=== PATIENT | male | born 2000 | race Caucasian/White ===

== ENCOUNTER 2021-02-25 18:34 | Emergency (ER) | payer OTHER, SELFPAY ==
[2021-02-25 19:07] VITALS: BP 152/72; PULSE 70; RESP 14; TEMP 36.7; O2SAT 98; BMI 19.5
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
[2021-02-25 21:53] LABS: Bacteria Urine None Seen; RBC Urine None Seen (0-5/HPF); WBC Urine None Seen (0-5/HPF)
[2021-02-25 21:59] LABS: UR Morphine/Opiate cutoff 300 Negative (Negative); Ur Creatinine 20 (Normal); Urine Amphetamines Negative (Negative); Urine Barbiturates Negative (Negative); Urine Benzodiazepines Negative (Negative); Urine Cocaine Negative (Negative); Urine MDMA Negative (Negative); Urine Methadone Negative (Negative); Urine Methamphetamines Negative (Negative); Urine Oxycodone Negative (Negative); Urine Phencyclidine Negative (Negative); Urine Tetrahydrocannabinol Positive (Negative); Urine Tricyclic Antidepressant Negative (Negative); Urine pH 7 (Normal)
[2021-02-25 22:06] LABS: Alanine Aminotransferase 17 IU/L (<50); Albumin 4.9 g/dL (3.5-5.0); Albumin Globulin Ratio 1.5 (1.0-2.8); Alkaline Phosphatase 80 U/L (38-126); Aspartate Aminotransferase 29 IU/L (17-59); BUN Creatinine Ratio 16.5 (6-22); Bilirubin Total 0.6 mg/dL (0.2-1.3); Blood Urea Nitrogen 13 mg/dL (9-20); Carbon Dioxide 29 mmol/L (22-32); Chloride 102 mmol/L (98-107); Estimated Glomerular Filt Rate > 60.0 mL/min (>60); Ethanol (ETOH) < 10 mg/dL; Globulin 3.2 g/dL (1.7-4.1); Glucose 102 mg/dL (70-100); HEMOLYSIS < 15 (0-50); Potassium 3.9 mmol/L (3.4-5.1); Sodium 139 mmol/L (137-145); Total Protein 8.1 g/dL (6.3-8.2)
[2021-02-25 22:07] LABS: Add Manual Diff / Slide Review NO; Basophils Absolute Auto 0 /uL (0-100); Basophils Percent Auto 0.4 % (0-2); Eosinophils Absolute Auto 100 /uL (0-450); Hematocrit 40.6 % (41-53); Hemoglobin 13.6 g/dL (13.5-17.5); Lymphocytes Absolute Auto 2000 /uL (1100-4500); Lymphocytes Percent Auto 31.9 % (25-40); Mean Corpuscular HGB Conc 33.6 % (30-36); Mean Corpuscular Volume 86.3 fL (80-100); Monocytes Absolute Auto 500 /uL (0-900); Monocytes Percent Auto 8.6 % (3-14); Neutrophils Absolute Auto 3500 /uL (1500-7000); Neutrophils Percent Auto 57.1 % (50-75); Platelet Count 206 X10^3/uL (150-400); Red Blood Cell Count 4.71 X10^6/uL (4.5-5.9); White Blood Cell Count 6.2 X10^3/uL (4.5-11.0)
[2021-02-25 22:13] LABS: Culture Indicated Urine Cult Not Indicated
[2021-02-25 22:38] LABS: COVID19 -Nasal RAPID POSITIVE (Negative)
[2021-02-25 23:15] VITALS: BP 144/82; PULSE 67; RESP 18; O2SAT 99
== END 2021-02-25 23:16 | disposition home or self-care (01) ==
PROVIDERS: Emergency Provider Emergency Medicine
DX: F32.9 Major depressive disorder, single episode, unspecified (principal); U07.1 COVID-19
CPT/HCPCS: 36415; 80053; 80305; 80320; 81015; 85025; 87635; 99283; C9803

== ENCOUNTER 2022-03-26 22:36 | Emergency (ER) | payer OTHER, MEDICAID, SELFPAY ==
[2022-03-26 22:37] VITALS: BP 152/90; PULSE 77; RESP 16; TEMP 36.5; O2SAT 99
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
--- NOTE | 2022-03-26 23:41 | DI.CT.S_ITS ---
PROCEDURE: CT ANGIO HEAD AND NECK INDICATIONS: headache, trauma, proptosis, miosis TECHNIQUE: After the administration of intravenous contrast, 1 mm thick sections acquired from the aortic arch through the [place] of Tsai. Post-contrast 4.5 mm thick sections then re-acquired from the foramen magnum to the vertex. 3-dimensional aacyfvh-aqxqslfgi-dkagwwqiph (MIP) and/or volume rendering reformats were acquired of the central intracranial vasculature and neck separately. For radiation dose reduction, the following was used: automated exposure control, adjustment of mA and/or kV according to patient size. COMPARISON: None. FINDINGS: Image quality: Diagnostic a the g Radiology is the thicker available free air are at the of or. BRAIN: CSF spaces: Basal cisterns are patent. No extra-axial fluid collections. Ventricles are normal in size and shape. Brain: No intracranial hematoma collections, mass, or mass effect. Serna-white matter interface appears preserved. No abnormal intracranial enhancement. Skull and face: Calvarium and facial bones appear intact, without suspicious lesions. Orbits appear normal. Sinuses: Sinuses and mastoids are clear. HEAD CT ANGIOGRAPHY: Anterior circulation: Intracranial internal carotid arteries are normal in size and appear patent bilaterally. There is mild atherosclerotic calcification along the cavernous segments of the internal carotid arteries. The paired anterior cerebral arteries appear patent bilaterally. The anterior communicating artery also appears patent. The middle cerebral arteries appear patent bilaterally. No high-grade stenosis, occlusion, or filling defects. No cerebral aneurysms identified. Posterior circulation: Visualized portions of the vertebral arteries demonstrate normal caliber, and join to form a patent basilar artery. The posterior cerebral arteries appears patent bilaterally. No high-grade stenosis, occlusion, or filling defects. No cerebral aneurysms identified. NECK CT ANGIOGRAPHY: Carotid system: The great vessels demonstrate a conventional anatomy as they arise from the aortic arch. The origins of the common carotid arteries appear patent. The common carotid arteries demonstrate normal caliber and courses. The bifurcation regions are both widely patent. There is severe segmental narrowing of the internal carotid artery beginning at the level of C2 and extending to the petrous segment of the ICA. There is associated narrowing of greater than 70% with evaluation of the petrous segment limited due to the adjacent bones. The findings likely represent a carotid dissection with thrombosis of the false lumen. The left internal carotid artery appears patent. Posterior circulation: The origins of the vertebral arteries both appear patent. The more superior extracranial portions of both vertebral arteries also demonstrate normal courses and calibers. They join to form a patent basilar artery. Soft tissues: Visualized neck soft tissues demonstrate no suspicious abnormalities. Bones: No suspicious bony lesions. Visualized cervical spine appears intact. IMPRESSION: 1. 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 Findings discussed with Dr. Negro on 03/27/2022 at 1:35 a.m.. Any quantitative measurements of stenosis were performed using NASCET criteria. Dictated by: Mani Garcia M.D. on 03/27/2022 at 1:32 Approved by: Mani Garcia M.D. on 03/27/2022 at 1:44
[2022-03-27 00:09] LABS: Alanine Aminotransferase 21 IU/L (<50); Albumin 4.6 g/dL (3.5-5.0); Albumin Globulin Ratio 1.5 (1.0-2.8); Alkaline Phosphatase 84 U/L (38-126); Aspartate Aminotransferase 29 IU/L (17-59); BUN Creatinine Ratio 20.7 (6-22); Bilirubin Total 0.3 mg/dL (0.2-1.3); Blood Urea Nitrogen 17 mg/dL (9-20); Calcium 9.2 mg/dL (8.4-10.2); Carbon Dioxide 25 mmol/L (22-32); Chloride 104 mmol/L (98-107); Estimated Glomerular Filt Rate > 60 mL/min (>60); Glucose 105 mg/dL (70-100); HEMOLYSIS 16 (0-50); Magnesium 2.1 mg/dL (1.6-2.3); Potassium 4.1 mmol/L (3.4-5.1); Sodium 139 mmol/L (137-145); Total Protein 7.6 g/dL (6.3-8.2)
[2022-03-27 00:17] LABS: Add Manual Diff / Slide Review NO; Basophils Absolute Auto 0 /uL (0-100); Basophils Percent Auto 0.3 % (0-2); Eosinophils Absolute Auto 300 /uL (0-450); Eosinophils Percent Auto 3.2 % (2-4); Hematocrit 42.8 % (41-53); Hemoglobin 14.9 g/dL (13.5-17.5); Lymphocytes Absolute Auto 2200 /uL (1100-4500); Lymphocytes Percent Auto 27.3 % (25-40); Mean Corpuscular HGB Conc 34.9 % (30-36); Mean Corpuscular Hemoglobin 30.9 PG (26-34); Mean Corpuscular Volume 88.3 fL (80-100); Monocytes Absolute Auto 600 /uL (0-900); Monocytes Percent Auto 8.2 % (3-14); Neutrophils Absolute Auto 4800 /uL (1500-7000); Platelet Count 164 X10^3/uL (150-400); Red Blood Cell Count 4.84 X10^6/uL (4.5-5.9); Red Cell Distribution Width 12.8 % (11.6-14.8); White Blood Cell Count 7.9 X10^3/uL (4.5-11.0)
[2022-03-27] MEDS: PROPARACAINE 0.5% OPHTH SOL 1 DROPS EYE-RIGHT (00:19)
[2022-03-27 00:48] LABS: COVID19 -Nasal RAPID Negative (Negative)
[2022-03-27 01:46] VITALS: BP 151/87; PULSE 70; RESP 18; O2SAT 99
[2022-03-27] MEDS: ASPIRIN 81 MG CHEW TAB 324 MG PO (02:16)
[2022-03-27 03:06] VITALS: BP 139/78; PULSE 76; RESP 18; O2SAT 99
== END 2022-03-27 03:07 | disposition home or self-care (01) ==
PROVIDERS: Emergency Provider Emergency Medicine
DX: I77.71 Dissection of carotid artery (principal); Z20.822 Contact with and (suspected) exposure to COVID-19; Z86.16 Personal history of COVID-19
CPT/HCPCS: 36415; 70496; 70498; 80053; 83735; 85025; 87635; 99284; C9803; Q9967

== ENCOUNTER 2022-03-28 12:33 | Emergency (ER) | payer OTHER, MEDICAID, SELFPAY ==
[2022-03-28] VITALS (9 sets, daily range): BP systolic 109–128; BP diastolic 53–66; PULSE 38–55; RESP 15–22; TEMP 35.9; O2SAT 97–100; BMI 21.6
--- NOTE | 2022-03-28 13:15 | ED.NEUROSD ---
HPI - Neuro Symptoms/Deficit General Chief Complaint: Neuro Symptoms/Deficit Stated Complaint: Carotid Artery, Getting Worse Time Seen by Provider: 03/28/22 12:41 Source: patient Mode of arrival: Ambulatory History of Present Illness HPI Narrative: Patient is a 22-year-old male who has a recent history of right vertebral artery dissection after maurice diving. He was seen and evaluated here on 03/27/2022. He says he went maurice jumping 5 days ago now felt like he got whiplash he noticed some right eye drooping and came to the ER couple days ago. At that time he has also had right-sided frontal headache. He was diagnosed with vertebral artery dissection by CT angio. [facility] stroke physicians were notified he was instructed to start taking lisinopril and aspirin daily. Also Neurology in the telling him was consult did and also agreed with antihypertensives and aspirin to avoid high-risk activities. Today day he returns because he had blurry vision in his right eye which was worst then normal and lasted for about 1 hour it has now completely resolved. He denies any blackness or loss of vision. Related Data Previous Rx's Medication Instructions Recorded escitalopram oxalate 10 mg tablet 10 mg PO DAILY #30 tabs 02/19/22 lisinopril 10 mg tablet 10 mg PO DAILY #30 tabs 03/27/22 clopidogrel 75 mg tablet (Plavix) 75 mg PO DAILY #90 tabs 03/28/22 Allergies Allergy/AdvReac Type Severity Reaction Status Date / Time No Known Drug Allergies Allergy Verified 03/28/22 12:39 Review of Systems Review of Systems Narrative: GENERAL: Denies chills, fatigue, malaise, fever, sweats, travel HEENT: See HPI RESPIRATORY: Denies dyspnea, cough, wheezing, hemoptysis, sputum. CARDIOVASCULAR: Denies chest pain, palpitations, orthopnea, edema GASTROINTESTINAL: Denies nausea, vomiting, abdominal pain, diarrhea, constipation, melena. : Denies dysuria, frequency, incontinence, hematuria, urinary retention, flank pain. MUSCULOSKELETAL: Denies weakness, joint pain, or bony pain SKIN: No rash, no erythema, no pruritus NEUROLOGIC: Denies weakness, dizziness, headache, numbness, change in speech, confusion PSYCHIATRIC: No concerning psychosocial issues. 12 point review of systems is negative except for those stated above and HPI Patient History Medical History Hypertension Social History Smoking Status: Current some day smoker Smoking Status: Current some day smoker alcohol intake frequency: a few times a week Substance Use Type: does not use Exam Initial Vital Signs Initial Vital Signs: Vital Signs Temperature 96.7 F L 03/28/22 12:37 Pulse Rate 49 L 03/28/22 12:37 Respiratory Rate 15 03/28/22 12:37 Blood Pressure 125/60 03/28/22 12:37 Pulse Oximetry 100 03/28/22 12:37 Oxygen Delivery Method 03/28/22 12:37 GENERAL: Well-appearing, well-nourished and in no acute distress. HEENT: Head atraumatic,EOMI, very mild right eye sure review left eye is dilated at about a 3 mm right eye is more pain point about 2 mm EARS: Tympanic membranes visualized, no erythema or bulging, no hemotympanum CARDIOVASCULAR: Regular rate and rhythm without murmurs, rubs or gallops. RESPIRATORY: Breath sounds equal bilaterally, no wheezes rales or rhonchi. ABDOMEN: Soft, nontender. Normoactive bowel sounds all 4 quadrants. No guarding or rebound. EXTREMITIES: Normal range of motion, no clubbing or edema. Neurovascularly intact NEUROLOGICAL: Alert and oriented x4.Normal gait and speech. Cranial nerves II through XII grossly intact. Good lmqixo-ar-rved, good tdnc-gt-salu, strength equal bilaterally, no dysarthria or aphasia, sensation in tact to soft touch bilaterally, no visual changes, no facial droop SKIN: Warm, dry, no laceration, no petechiae, no rashes or lesions. Course Orders Ordered: ED Orders 03/28/22 13:28 CT angio head and neck Stat 03/28/22 13:30 CBC Auto Diff [Complete Blood Count AUTO DIFF] Stat CMP [Comprehensive Metabolic Panel] Stat Discontinued Medications Clopidogrel Bisulfate (Clopidogrel 75 Mg Tablet) 300 mg PO NOW ONE Stop: 03/28/22 16:13 Last Admin: 03/28/22 16:18 Dose: 300 mg Documented By: CASSIE Vital Signs Vital signs: Vital Signs - 8 hr 03/28/22 12:37 03/28/22 12:45 03/28/22 12:46 Temperature 96.7 F L Pulse Rate 49 L 54 L Respiratory Rate 15 Blood Pressure 125/60 Pulse Oximetry 100 99 100 Oxygen Delivery Method Room Air 03/28/22 12:46 03/28/22 13:00 03/28/22 13:00 Temperature Pulse Rate 49 L Respiratory Rate 15 Blood Pressure 128/60 124/59 L Pulse Oximetry 99 Oxygen Delivery Method 03/28/22 13:30 03/28/22 13:30 03/28/22 15:01 Temperature Pulse Rate 55 L 38 L Respiratory Rate 17 16 Blood Pressure 124/58 L Pulse Oximetry 99 99 Oxygen Delivery Method 03/28/22 15:02 03/28/22 15:02 03/28/22 15:30 Temperature Pulse Rate 45 L Respiratory Rate 16 Blood Pressure 115/53 L 109/59 L Pulse Oximetry 99 Oxygen Delivery Method 03/28/22 15:30 03/28/22 16:00 03/28/22 16:00 Temperature Pulse Rate 49 L 43 L Respiratory Rate 20 22 Blood Pressure 113/66 Pulse Oximetry 98 97 Oxygen Delivery Method MDM - Neuro Symptoms/Deficit Lab Data Result diagrams: 03/28/22 13:30 03/28/22 13:30 Labs: Lab Results 03/28/22 03/28/22 Range/Units 13:30 13:30 WBC 6.5 (4.5-11.0) X10^3/uL RBC 4.78 (4.5-5.9) X10^6/uL Hgb 14.7 (13.5-17.5) g/dL Hct 42.5 (41-53) % MCV 88.8 (80-100) fL MCH 30.8 (26-34) PG MCHC 34.7 (30-36) % RDW 12.4 (11.6-14.8) % Plt Count 163 (150-400) X10^3/uL Neut % (Auto) 64.3 (50-75) % Lymph % (Auto) 25.0 (25-40) % [place] % (Auto) 7.0 (3-14) % Eos % (Auto) 3.3 (2-4) % Baso % (Auto) 0.4 (0-2) % Neut # (Auto) 4200 (5420-1453) /uL Lymph # (Auto) 1600 (1469-2628) /uL [place] # (Auto) 500 (0-900) /uL Eos # (Auto) 200 (0-450) /uL Baso # (Auto) 0 (0-100) /uL Sodium 139 (137-145) mmol/L Potassium 4.5 (3.4-5.1) mmol/L Chloride 102 (98-107) mmol/L Carbon Dioxide 31 (22-32) mmol/L BUN 14 (9-20) mg/dL Creatinine 1.15 (0.66-1.25) mg/dL Estimated GFR > 60 (>60) mL/min BUN/Creatinine Ratio 12.2 (6-22) Glucose 95 (70-100) mg/dL Calcium 9.0 (8.4-10.2) mg/dL Total Bilirubin 0.4 (0.2-1.3) mg/dL AST 26 (17-59) IU/L ALT 18 (<50) IU/L Alkaline Phosphatase 70 (38-126) U/L Total Protein 7.2 (6.3-8.2) g/dL Albumin 4.3 (3.5-5.0) g/dL Globulin 2.9 (1.7-4.1) g/dL Albumin/Globulin Ratio 1.5 (1.0-2.8) Imaging Data CTA - brain/neck: Radiologist's Impression: CT Scan Report Signed Patient: Giulia Izaguirre MR#: [id number] : 2000 Acct:[id number] Age/Sex: 22 / M Date of Service: 03/28/22 Loc: ED Accession Number: [id number] ?? Procedure: CT angio head and neck Ordering Provider: Gia Thomas D.O. PROCEDURE:? CT ANGIO HEAD AND NECK ? INDICATIONS:? worse right vision change with dissection ? TECHNIQUE:? Pre-contrast 4.5 mm thick sections acquired from the foramen magnum to the vertex.? After the administration of intravenous contrast, 1 mm thick sections acquired from the aortic arch through the [place] of Tsai.? Post-contrast 4.5 mm thick sections then re-acquired from the foramen magnum to the vertex.? 3-dimensional xjkyoou-ogtfmajxk-ztxphtpkrx (MIP) and/or volume rendering reformats were acquired of the central intracranial vasculature and neck separately. For radiation dose reduction, the following was used:? automated exposure control, adjustment of mA and/or kV according to patient size.? ? COMPARISON:? [facility], CT, CT ANGIO HEAD AND NECK, 03/27/2022, 0:42. ? FINDINGS:? Image quality:? Excellent.? ? BRAIN:? CSF spaces:? Ventricles are normal in size and shape.? Basal cisterns are patent.? No extra-axial fluid collections.? ? Brain:? No midline shift.? No intracranial bleeds or masses.? Serna-white matter interface appears intact.? ? Skull and face:? Calvarium and facial bones appear intact, without suspicious lesions.? Orbits appear normal.? ? Sinuses:? Sinuses and mastoids are clear.? ? HEAD CT ANGIOGRAPHY:? Anterior circulation:? Intracranial internal carotid arteries are normal in size and flow.? The flow within the paired anterior cerebral arteries is normal and symmetric.? The flow within the middle cerebral arteries is normal and symmetric.? The anterior communicating artery is seen.? No aneurysms are seen.? ? Posterior circulation:? Visualized portions of the vertebral arteries demonstrate normal caliber, and join to form a normal appearing basilar artery.? Flow within the posterior cerebral arteries is normal and symmetric.? No aneurysms are seen. ? Dural sinuses demonstrate normal postcontrast enhancement. ? ? NECK CT ANGIOGRAPHY:? Carotid system:? The great vessels demonstrate a conventional anatomy as they arise from the aortic arch.? The origins of the common carotid arteries appear patent.? The common carotid arteries demonstrate normal caliber and courses.? The bifurcation regions are both remain widely patent.? Dissection causing severe segmental narrowing of the right internal carotid artery extending from the C2 vertebral body to the petrous segment of the right ICA is stable compared to March 27, 2022. Left internal carotid artery is fully patent.? ? Posterior circulation:? The origins of the vertebral arteries both appear widely patent.? The more superior extracranial portions of both vertebral arteries also demonstrate normal courses and calibers.? They join to form a normal appearing basilar artery.? ? Soft tissues:? Visualized neck soft tissues demonstrate no suspicious abnormalities.? ? Bones:? No suspicious bony lesions.? Visualized cervical spine appears normally aligned.? IMPRESSION:? ? 1. Stable examination compared March 27, 2022. ? 2. Dissection causing severe stenosis to near occlusion of the right internal carotid artery is stable compared to March 27, 2022. Vascular surgery and/or interventional neuroradiology consultation is recommended.? ? Any quantitative measurements of stenosis were performed using NASCET criteria.? ? ? Dictated by: Meagan Mancuso MD, PhD on 03/28/2022 at 14:13 ? ? Approved by: Meagan Mancuso MD, PhD on 03/28/2022 at 14:22 MDM Narrative Medical decision making narrative: Time time CT is stable vision has improved. 1600-Dr. ambrosio [facility] stroke neurologist updated patient's symptoms test results she is familiar with the patient. At this time recommend adding Plavix and bloating with 300 mg in the ED. Agrees with outpatient follow-up and repeat CT imaging at 6 months. Patient's vision is not loss of vision or blackening of vision blurry id that has now simply resolved. A not quite consistent with a an embolus however he is certainly at risk for 1. He agrees with increasing his Plavix. Discussed about limiting the weightlifting and holding off strenuous exercise until cleared by Neurology. Discharge Plan Departure Patient Disposition: Home Clinical Impression: Internal carotid artery dissection Instructions: DI for Neck Dissection Activity Restrictions/Additional Instructions: *You have been diagnosed with internal carotid dissection *What to do: At this time we are adding medication to help prevent stroke. Avoid heavy lifting until cleared by Neurology. No restrictions in driving You may attended air show *Continue to take medications as directed Plavix 75 mg once daily--> SENT TO [facility] Aspirin 325 mg once a *Follow up with your primary care provider in 2-3 days or call [phone] ?Dr. Gallo with Neurology at [facility] in [place]. Call them later today to setup follow up. Let them know you were seen in the emergency department and would like you seen in follow-up. [phone] *Return to ER if you should have increasing visual loss blackening vision numbness tingling weakness of arm or leg or any new, worsening or concerning symptoms Prescriptions: New clopidogrel [Plavix] 75 mg tablet 75 mg PO DAILY Qty: 90 0RF No Action escitalopram oxalate 10 mg tablet 10 mg PO DAILY Qty: 30 1RF Label Comments: Pt did not start medication as prescribed. lisinopril 10 mg tablet 10 mg PO DAILY Qty: 30 0RF Referrals: Miscellaneous,Doctor, [Primary Care Provider] - Anup Gallo DO [Non-Staff] - Visit Report Forms: Patient Portal/API
--- NOTE | 2022-03-28 13:28 | DI.CT.S_ITS ---
PROCEDURE: CT ANGIO HEAD AND NECK INDICATIONS: worse right vision change with dissection TECHNIQUE: Pre-contrast 4.5 mm thick sections acquired from the foramen magnum to the vertex. After the administration of intravenous contrast, 1 mm thick sections acquired from the aortic arch through the [place] of Tsai. Post-contrast 4.5 mm thick sections then re-acquired from the foramen magnum to the vertex. 3-dimensional tbruhfj-zdgmbwcxp-ridcuzkwcy (MIP) and/or volume rendering reformats were acquired of the central intracranial vasculature and neck separately. For radiation dose reduction, the following was used: automated exposure control, adjustment of mA and/or kV according to patient size. COMPARISON: [facility], CT, CT ANGIO HEAD AND NECK, 03/27/2022, 0:42. FINDINGS: Image quality: Excellent. BRAIN: CSF spaces: Ventricles are normal in size and shape. Basal cisterns are patent. No extra-axial fluid collections. Brain: No midline shift. No intracranial bleeds or masses. Serna-white matter interface appears intact. Skull and face: Calvarium and facial bones appear intact, without suspicious lesions. Orbits appear normal. Sinuses: Sinuses and mastoids are clear. HEAD CT ANGIOGRAPHY: Anterior circulation: Intracranial internal carotid arteries are normal in size and flow. The flow within the paired anterior cerebral arteries is normal and symmetric. The flow within the middle cerebral arteries is normal and symmetric. The anterior communicating artery is seen. No aneurysms are seen. Posterior circulation: Visualized portions of the vertebral arteries demonstrate normal caliber, and join to form a normal appearing basilar artery. Flow within the posterior cerebral arteries is normal and symmetric. No aneurysms are seen. Dural sinuses demonstrate normal postcontrast enhancement. NECK CT ANGIOGRAPHY: Carotid system: The great vessels demonstrate a conventional anatomy as they arise from the aortic arch. The origins of the common carotid arteries appear patent. The common carotid arteries demonstrate normal caliber and courses. The bifurcation regions are both remain widely patent. Dissection causing severe segmental narrowing of the right internal carotid artery extending from the C2 vertebral body to the petrous segment of the right ICA is stable compared to March 27, 2022. Left internal carotid artery is fully patent. Posterior circulation: The origins of the vertebral arteries both appear widely patent. The more superior extracranial portions of both vertebral arteries also demonstrate normal courses and calibers. They join to form a normal appearing basilar artery. Soft tissues: Visualized neck soft tissues demonstrate no suspicious abnormalities. Bones: No suspicious bony lesions. Visualized cervical spine appears normally aligned. IMPRESSION: 1. Stable examination compared March 27, 2022. 2. Dissection causing severe stenosis to near occlusion of the right internal carotid artery is stable compared to March 27, 2022. Vascular surgery and/or interventional neuroradiology consultation is recommended. Any quantitative measurements of stenosis were performed using NASCET criteria. Dictated by: Meagan Mancuso MD, PhD on 03/28/2022 at 14:13 Approved by: Meagan Mancuso MD, PhD on 03/28/2022 at 14:22
[2022-03-28 13:39] LABS: Add Manual Diff / Slide Review NO; Basophils Absolute Auto 0 /uL (0-100); Basophils Percent Auto 0.4 % (0-2); Eosinophils Absolute Auto 200 /uL (0-450); Eosinophils Percent Auto 3.3 % (2-4); Hematocrit 42.5 % (41-53); Hemoglobin 14.7 g/dL (13.5-17.5); Lymphocytes Absolute Auto 1600 /uL (1100-4500); Mean Corpuscular HGB Conc 34.7 % (30-36); Mean Corpuscular Hemoglobin 30.8 PG (26-34); Mean Corpuscular Volume 88.8 fL (80-100); Monocytes Absolute Auto 500 /uL (0-900); Neutrophils Absolute Auto 4200 /uL (1500-7000); Neutrophils Percent Auto 64.3 % (50-75); Platelet Count 163 X10^3/uL (150-400); Red Blood Cell Count 4.78 X10^6/uL (4.5-5.9); Red Cell Distribution Width 12.4 % (11.6-14.8); White Blood Cell Count 6.5 X10^3/uL (4.5-11.0)
[2022-03-28 13:53] LABS: Alanine Aminotransferase 18 IU/L (<50); Albumin 4.3 g/dL (3.5-5.0); Albumin Globulin Ratio 1.5 (1.0-2.8); Alkaline Phosphatase 70 U/L (38-126); Aspartate Aminotransferase 26 IU/L (17-59); BUN Creatinine Ratio 12.2 (6-22); Bilirubin Total 0.4 mg/dL (0.2-1.3); Blood Urea Nitrogen 14 mg/dL (9-20); Carbon Dioxide 31 mmol/L (22-32); Chloride 102 mmol/L (98-107); Estimated Glomerular Filt Rate > 60 mL/min (>60); Globulin 2.9 g/dL (1.7-4.1); Glucose 95 mg/dL (70-100); HEMOLYSIS < 15 (0-50); Potassium 4.5 mmol/L (3.4-5.1); Sodium 139 mmol/L (137-145); Total Protein 7.2 g/dL (6.3-8.2)
[2022-03-28] MEDS: CLOPIDOGREL 75 MG TABLET 300 MG PO (16:18)
== END 2022-03-28 16:29 | disposition home or self-care (01) ==
PROVIDERS: Emergency Provider Emergency Medicine
DX: I77.71 Dissection of carotid artery (principal)
CPT/HCPCS: 36415; 70496; 70498; 80053; 85025; 99284; Q9967

== ENCOUNTER → 2022-08-01 17:04 | Outpatient (CLI) | payer OTHER, MEDICAID, SELFPAY ==
[2022-08-01 19:50] LABS: Urine N gonorrhoeae NOT DETECTED
[2022-08-01 19:52] LABS: Urine Chlamydia NOT DETECTED
[2022-08-03 10:30] LABS: HSV 2 IGG AB < 0.91 index (0.00-0.90); HSV1IGG < 0.91 index (0.00-0.90)
== END ==
PROVIDERS: Referring Provider Physician Assistant Medical; Visit Provider Physician Assistant Medical
DX: Z72.52 High risk homosexual behavior (principal); Z72.51 High risk heterosexual behavior
CPT/HCPCS: 36415; 86695; 86696; 87491; 87591

== ENCOUNTER 2022-11-02 16:36 | Emergency (ER) | payer OTHER, MEDICAID, SELFPAY ==
[2022-11-02 16:36] VITALS: BP 143/86; PULSE 72; RESP 16; TEMP 36.2; O2SAT 99; BMI 21.5
--- NOTE | 2022-11-02 16:55 | ED_ITS ---
HPI - Recheck/Abnormal Lab/Rx General Chief Complaint: Recheck/Abnormal Lab/Rx Stated Complaint: Bat exposure Time Seen by Provider: 11/02/22 16:43 Source: patient Mode of arrival: Ambulatory History of Present Illness HPI narrative: Patient is a 22-year-old male here for evaluation of a potential bat exposure approximately 1 week ago. He stated that he slept in a room last Thursday evening that had the window open. That window was closed the next morning and 2 days later a bat was found in that room. The other individual who was in the room with him was here in the emergency department a couple days ago and was treated with the rabies vaccine. They stated that the only way they can think of of the bat entering that room would have been on the night that the patient slept in that room when the window was open. He states he did not notice having any scratches or known bites. Related Data Home Medications Medication Instructions Recorded Confirmed No Known Home Medications 08/05/22 08/05/22 Allergies Allergy/AdvReac Type Severity Reaction Status Date / Time No Known Drug Allergies Allergy Verified 08/05/22 13:50 Review of Systems Review of Systems ROS Unobtainable: All systems reviewed & are unremarkable except as noted in HPI and below Patient History Medical History Hypertension Social History Smoking Status: Former smoker Smoking Status: Former smoker alcohol intake frequency: a few times a week Substance Use Type: does not use Exam Initial Vital Signs Initial Vital Signs: Vital Signs Temperature 97.2 F L 11/02/22 16:36 Pulse Rate 72 11/02/22 16:36 Respiratory Rate 16 11/02/22 16:36 Blood Pressure 143/86 H 11/02/22 16:36 Pulse Oximetry 99 11/02/22 16:36 Oxygen Delivery Method Room Air 11/02/22 16:36 Const General: cooperative, comfortable and No ill appearing HENMT Head: normal to inspection and normocephalic Resp Effort & Inspection: normal respiratory effort Cardio Rate: regular rate Skin General: no rashes or lesions noted Course Orders Ordered: Discontinued Medications Rabies Vaccine (Rabies Vaccine (Rabavert) 2.5 Units Syringe) 2.5 units IM .ONCE ONE Stop: 11/02/22 16:53 Vital Signs Vital signs: Vital Signs - 8 hr 11/02/22 16:36 Temperature 97.2 F L Pulse Rate 72 Respiratory Rate 16 Blood Pressure 143/86 H Pulse Oximetry 99 Oxygen Delivery Method Room Air MDM - Recheck/Abnormal Lab/Rx MDM Narrative Medical decision making narrative: Given the fact that the patient could have potentially had an overnight exposure to the bat can not definitively say that he did not have any contact with it we will treat with the rabies vaccine. There is no indication for the immu noglobulin. The other individual in the room has already been treated. Will discharge patient home with instructions to follow-up for further immunizations. Discharge Plan Departure Patient Disposition: Home Clinical Impression: Exposure to bat without known bite Instructions: DI for Rabies Vaccine Activity Restrictions/Additional Instructions: You did receive the 1st dose of the vaccine today. Your next dose will be on ThursdayNovember 05. The next dose after that will be on ThursdayNovember 09 and the last dose will be on ThursdayNovember 16. I do recommend tomorrow you contact your primary doctor to see if they are able to administer these to you. You can also try the walk-in clinic. If you need to you can return to the emergency department. Prescriptions: No Action No Known Home Medications Stand Alone Forms: Patient Portal/API
[2022-11-02] MEDS: RABIES VACCINE (RABAVERT) 2.5 UNITS SYRINGE IM (17:12)
== END 2022-11-02 17:30 | disposition home or self-care (01) ==
PROVIDERS: Emergency Provider Emergency Medicine
DX: Z20.3 Contact with and (suspected) exposure to rabies (principal); Z23 Encounter for immunization
CPT/HCPCS: 90471; 90675; 99283

== ENCOUNTER 2022-11-05 20:38 | Emergency (ER) | payer OTHER, MEDICAID, SELFPAY ==
[2022-11-05 20:51] VITALS: BP 140/76; PULSE 79; RESP 16; TEMP 36.7; O2SAT 99; BMI 20.9
[2022-11-05] MEDS: RABIES VACCINE (RABAVERT) 2.5 UNITS SYRINGE IM (21:42)
--- NOTE | 2022-11-05 21:58 | ED.RECABL ---
HPI - Recheck/Abnormal Lab/Rx General Chief Complaint: Recheck/Abnormal Lab/Rx Stated Complaint: here for 2nd rabies shot Time Seen by Provider: 11/05/22 21:52 Source: patient Mode of arrival: Ambulatory History of Present Illness HPI narrative: Patient is a 22-year-old male with history of possible bat exposure about 1 week ago. He slept in a room with a window, window got closed, open 2 days later bat found in room. He was seen and evaluated here November 02 he received 1st rabies shot, he is here for 2nd shot. He has no complaints. Related Data Home Medications Medication Instructions Recorded Confirmed No Known Home Medications 08/05/22 08/05/22 Allergies Allergy/AdvReac Type Severity Reaction Status Date / Time No Known Drug Allergies Allergy Verified 08/05/22 13:50 Review of Systems Review of Systems ROS Unobtainable: All systems reviewed & are unremarkable except as noted in HPI and below Patient History Medical History Hypertension Social History Smoking Status: Former smoker Smoking Status: Former smoker alcohol intake frequency: a few times a week Substance Use Type: does not use Exam Initial Vital Signs Initial Vital Signs: Vital Signs Temperature 98.0 F 11/05/22 20:51 Pulse Rate 79 11/05/22 20:51 Respiratory Rate 16 11/05/22 20:51 Blood Pressure 140/76 11/05/22 20:51 Pulse Oximetry 99 11/05/22 20:51 Oxygen Delivery Method Room Air 11/05/22 20:51 GENERAL: Alert well-appearing 22-year-old male CARDIOVASCULAR: peripheral pulses in tact, cap refill <2 sec RESPIRATORY: No respiratory distress, speaks in full sentences without difficulty EXTREMITIES: Normal range of motion, no clubbing or edema. Neurovascularly intact NEUROLOGICAL: Cranial nerves II through XII grossly intact. Normal gait and speech. SKIN: Warm, dry, no petechiae, no rashes or lesions. Course Orders Ordered: Discontinued Medications Rabies Vaccine (Rabies Vaccine (Rabavert) 2.5 Units Syringe) 2.5 units IM .ONCE ONE Stop: 11/05/22 21:02 Last Admin: 11/05/22 21:42 Dose: 2.5 units Documented By: GC Vital Signs Vital signs: Vital Signs - 8 hr 11/05/22 20:51 Temperature 98.0 F Pulse Rate 79 Respiratory Rate 16 Blood Pressure 140/76 Pulse Oximetry 99 Oxygen Delivery Method Room Air MDM - Recheck/Abnormal Lab/Rx MDM Narrative Medical decision making narrative: 22-year-old healthy male here for 2nd rabies shot. He has no symptoms. No complications. Discharge Plan Departure Patient Disposition: Home Clinical Impression: Exposure to bat without known bite Instructions: DI for Rabies Vaccine Activity Restrictions/Additional Instructions: The next dose after that will be on ThursdayNovember 09 and the last dose will be on ThursdayNovember 16.? I do recommend tomorrow you contact your primary doctor to see if they are able to administer these to you.? You can also try the walk-in clinic.? If you need to you can return to the emergency department. Prescriptions: No Action No Known Home Medications Stand Alone Forms: Patient Portal/API
[2022-11-05 22:10] VITALS: BP 122/64; PULSE 70; RESP 14; TEMP 36.3; O2SAT 99
== END 2022-11-05 22:10 | disposition home or self-care (01) ==
PROVIDERS: Emergency Provider Emergency Medicine
DX: Z20.3 Contact with and (suspected) exposure to rabies (principal); Z23 Encounter for immunization
CPT/HCPCS: 90471; 90675; 99283

== ENCOUNTER 2022-11-10 17:05 | Emergency (ER) | payer OTHER, MEDICAID, SELFPAY ==
[2022-11-10 17:05] VITALS: BP 143/70; PULSE 64; RESP 18; TEMP 36.3; O2SAT 99; BMI 21.5
[2022-11-10] MEDS: RABIES VACCINE (RABAVERT) 2.5 UNITS SYRINGE IM (17:31)
--- NOTE | 2022-11-10 19:17 | ED.RECABL ---
HPI - Recheck/Abnormal Lab/Rx <Rey Mark PA-C - Last Filed: 11/10/22 19:21> General Chief Complaint: Recheck/Abnormal Lab/Rx Stated Complaint: Third Rabies shot post bat encounter Time Seen by Provider: 11/10/22 17:43 Source: patient Mode of arrival: Ambulatory History of Present Illness HPI narrative: 22-year-old male with past medical history hypertension, ADHD, social anxiety disorder, alcohol use disorder presents to the ED for the 3rd rabies shot. Patient denies any symptoms since the rabies exposure. Patient feels well. Related Data Home Medications Medication Instructions Recorded Confirmed No Known Home Medications 08/05/22 08/05/22 Allergies Allergy/AdvReac Type Severity Reaction Status Date / Time No Known Drug Allergies Allergy Verified 08/05/22 13:50 Review of Systems <Rey Mark PA-C - Last Filed: 11/10/22 19:21> Review of Systems ROS Unobtainable: All systems reviewed & are unremarkable except as noted in HPI and below Constitutional Constitutional: Denies chills, Denies fatigue, Denies fever(s), Denies frequent falls, Denies lethargy and Denies weakness Eyes Eyes: Denies change in vision, Denies eye discharge, Denies irritation and Denies loss of vision ENT Ears, Nose, Mouth, and Throat: Denies change in voice, Denies dizziness, Denies neck pain, Denies sore throat and Denies throat swelling Cardiovascular Cardiovascular: Denies chest pain, Denies irregular heart rhythm, Denies lightheadedness, Denies palpitations, Denies dyspnea, Denies dyspnea on exertion and Denies orthopnea Respiratory Respiratory: Denies cough, Denies dyspnea, Denies dyspnea on exertion and Denies wheezing Gastrointestinal Gastrointestinal: Denies abdominal pain, Denies change in bowel habits, Denies diarrhea, Denies nausea and Denies vomiting Genitourinary Genitourinary: Denies hematuria, Denies flank pain, Denies urinary incontinence and Denies urinary urgency Musculoskeletal Musculoskeletal: Denies back pain, Denies muscle weakness, Denies neck pain, Denies numbness and Denies tingling Integumentary/Breasts Skin/Breast: Denies pruritus, Denies erythema, Denies rash and Denies wounds Neurologic Neurologic: Denies behavioral changes, Denies confusion, Denies dizziness, Denies frequent falls, Denies loss of vision, Denies numbness, Denies tingling and Denies weakness Psychiatric Psychiatric: Denies anxiety, Denies behavioral changes, Denies confusion, Denies depression, Denies homicidal ideation and Denies suicidal ideation Endocrine Endocrine: Denies fatigue, Denies flushing and Denies palpitations Hematologic/Lymphatic Hematologic/Lymphatic: Denies easy bruising Allergic/Immunologic Allergic/Immunologic: Denies urticaria, Denies throat swelling and Denies wheezing Patient History <Rey Mark PA-C - Last Filed: 11/10/22 19:21> Medical History Hypertension Social History Smoking Status: Former smoker Smoking Status: Former smoker alcohol intake frequency: a few times a week Substance Use Type: does not use Exam <Rey Mark PA-C - Last Filed: 11/10/22 19:21> Narrative Exam Narrative: Const General:?cooperative, healthy appearing and comfortable [facility] Head:?normal to inspection Ears:?hearing grossly normal bilaterally Nose:?external nose normal Face and sinus:?normal facial exam and sinuses nontender Mouth:?oral mucosae normal Throat:?posterior oropharynx normal Eyes General:?appearance normal, both eyes and all related structures Neck Neck:?normal visual inspection and no lymphadenopathy noted Resp Effort & Inspection:?normal respiratory effort Auscultation:?clear to auscultation bilaterally Cardio Rate:?regular rate Rhythm:?regular rhythm Neuro General:?patient alert, patient awake and patient oriented x3 Initial Vital Signs Initial Vital Signs: Vital Signs Temperature 97.4 F L 11/10/22 17:05 Pulse Rate 64 11/10/22 17:05 Respiratory Rate 18 11/10/22 17:05 Blood Pressure 143/70 H 11/10/22 17:05 Pulse Oximetry 99 11/10/22 17:05 Oxygen Delivery Method Room Air 11/10/22 17:05 <Aries Gamboa DO - Last Filed: 11/11/22 07:14> Initial Vital Signs Initial Vital Signs: Vital Signs Temperature 97.4 F L 11/10/22 17:05 Pulse Rate 64 11/10/22 17:05 Respiratory Rate 18 11/10/22 17:05 Blood Pressure 143/70 H 11/10/22 17:05 Pulse Oximetry 99 11/10/22 17:05 Oxygen Delivery Method Room Air 11/10/22 17:05 Course <Rey Mark PA-C - Last Filed: 11/10/22 19:21> Orders Ordered: Discontinued Medications Rabies Vaccine (Rabies Vaccine (Rabavert) 2.5 Units Syringe) 2.5 units IM .ONCE ONE Stop: 11/10/22 17:11 Last Admin: 11/10/22 17:31 Dose: 2.5 units Documented By: CASSIE Vital Signs Vital signs: Vital Signs - 8 hr 11/10/22 17:05 Temperature 97.4 F L Pulse Rate 64 Respiratory Rate 18 Blood Pressure 143/70 H Pulse Oximetry 99 Oxygen Delivery Method Room Air <Aries Gamboa DO - Last Filed: 11/11/22 07:14> Orders Ordered: Discontinued Medications Rabies Vaccine (Rabies Vaccine (Rabavert) 2.5 Units Syringe) 2.5 units IM .ONCE ONE Stop: 11/10/22 17:11 Last Admin: 11/10/22 17:31 Dose: 2.5 units Documented By: CASSIE Vital Signs Vital signs: Vital Signs - 8 hr 11/10/22 17:05 Temperature 97.4 F L Pulse Rate 64 Respiratory Rate 18 Blood Pressure 143/70 H Pulse Oximetry 99 Oxygen Delivery Method Room Air MDM - Recheck/Abnormal Lab/Rx <Rey Mark PA-C - Last Filed: 11/10/22 19:21> MDM Narrative Medical decision making narrative: 22-year-old male with past medical history hypertension, ADHD, social anxiety disorder, alcohol use disorder presents to the ED for the 3rd rabies shot. Physical exam is reassuring. Patient has not had any symptoms since the exposure. Patient has tolerated the previous rabies shots well with no side-effects. Patient was given his 3rd shot today. Patient patient agrees to return for the next shot on November 16. ED return precautions were discussed with patient. Patient verbalized understanding. Medical records reviewed: Yes Discharge Plan Departure Patient Disposition: Home Clinical Impression: Rabies exposure Instructions: DI for Rabies Vaccine Activity Restrictions/Additional Instructions: You were seen in the ED today for your 3rd rabies shot. It is reassuring that you are not experiencing any symptoms. You received the 3rd shot. Your next shot will be on November 16. Return to the ED if you experience any of the red flag symptoms. Prescriptions: No Action No Known Home Medications Stand Alone Forms: Patient Portal/API <Aries Gamboa, DO - Last Filed: 11/11/22 07:14> Cosign ED Attending Cosignature Attestation: Dr Gamboa Co-Sign Statement: I was available for consultation during this patient's emergency department visit. This chart is signed by myself for administrative purposes only. I did not have direct contact with this patient during this visit. They were seen independently by the APC.
== END 2022-11-10 18:02 | disposition home or self-care (01) ==
PROVIDERS: Emergency Provider Student in an Organized Health Care Education/Training Program
DX: Z20.3 Contact with and (suspected) exposure to rabies (principal); Z23 Encounter for immunization
CPT/HCPCS: 90471; 90675; 99282; 99283